=== PATIENT | male | born 1960 | race African-American/Black ===

== ENCOUNTER 2016-10-12 15:08 | Emergency (ER) | payer OTHER ==
[2016-10-12 16:49] VITALS: BP 156/84; PULSE 66; RESP 16; TEMP 97.3; O2SAT 99
[2016-10-12] MEDS ORDERED: CEFTRIAXONE 1 GM PDS IM ONE (16:53)
[2016-10-12] MEDS ORDERED: KETOROLAC TROMETHAMINE 30 MG/ML SOL IM ONE (16:54)
[2016-10-12] MEDS ORDERED: LIDOCAINE HCL 1% MPF SOL ONE (17:01)
[2016-10-12] MEDS ORDERED: KETOROLAC TROMETHAMINE 30 MG/ML SOL ONE (17:05)
[2016-10-12] MEDS ORDERED: CEFTRIAXONE 1 GM PDS ONE (17:07)
== END 2016-10-12 17:33 | disposition home or self-care (01) | DRG 156 ==
LOC: ED 15:08
DX: H60.502 Unspecified acute noninfective otitis externa, left ear (principal); K11.21 Acute sialoadenitis
CPT/HCPCS: 96372; 99283; 99284; J0696; J1885; J2001

== ENCOUNTER 2016-12-10 11:23 | Emergency (ER) | payer OTHER ==
[2016-12-10 12:00] VITALS: BP 146/71; PULSE 72; RESP 20; TEMP 98.1; O2SAT 100
[2016-12-10 12:40] LABS: BASOPHILS % (AUTO) 1 % (0-3); EOSINOPHILS % (AUTO) 1 % (0-9); HEMATOCRIT 39 % (39-53); MEAN CORPUSCULAR HGB CONC 34.2 gm/dl (32.0-36.0); MEAN CORPUSCULAR VOLUME 93 fL (80-100); MONOCYTES % (AUTO) 8.5 % (0-12); NEUTROPHILS % (AUTO) 54.5 % (37-80)
[2016-12-10 12:58] LABS: CALCIUM 8.4 mg/dl (8.5-10.1); POTASSIUM 4.1 mMol/L (3.5-5.1)
== END 2016-12-10 14:30 | disposition home or self-care (01) | DRG 156 ==
LOC: ED 11:23
DX: K11.21 Acute sialoadenitis (principal); L30.9 Dermatitis, unspecified; R79.82 Elevated C-reactive protein (CRP)
CPT/HCPCS: 36415; 80053; 85025; 99282

== ENCOUNTER 2016-12-23 09:25 | Day surgery (SDC) | payer OTHER ==
[~2016-12-23 09:25] MED LIST: LIDOCAINE HCL 1% MPF SOL ONE; PROPOFOL 500 MG/50 ML EMU IV ONE
[2016-12-23 10:18] VITALS: TEMP 96.9
[2016-12-23 10:41] VITALS: RESP 18
[2016-12-23 10:53] VITALS: BP 122/77; PULSE 69; O2SAT 97
== END 2016-12-23 10:57 | disposition home or self-care (01) | DRG 433 ==
LOC: SURG 09:25
PROVIDERS: ATTEND Internal Medicine Gastroenterology
DX: K74.60 Unspecified cirrhosis of liver (principal); I85.00 Esophageal varices without bleeding; K76.6 Portal hypertension; E11.9 Type 2 diabetes mellitus without complications; Z79.4 Long term (current) use of insulin; K44.9 Diaphragmatic hernia without obstruction or gangrene; K31.89 Other diseases of stomach and duodenum
CPT/HCPCS: 82962; J2001; J2704

== ENCOUNTER 2017-12-19 06:35 | Emergency (ER) | payer OTHER ==
[2017-12-19 06:59] VITALS: RESP 18; TEMP 98.2
[2017-12-19] MEDS ORDERED: LIDOCAINE HCL 2% (VISCOUS) 20 ML SOL MT ONE (07:15)
[2017-12-19] MEDS ORDERED: LIDOCAINE HCL 2% (VISCOUS) 20 ML SOL ONE (07:20)
[2017-12-19 08:53] VITALS: BP 146/71; PULSE 85; O2SAT 100
== END 2017-12-19 09:11 | disposition home or self-care (01) | DRG 156 ==
LOC: ED 06:35
DX: H60.92 Unspecified otitis externa, left ear (principal); H61.23 Impacted cerumen, bilateral
CPT/HCPCS: 99282; A9270-GY

== ENCOUNTER 2018-02-04 09:24 | Emergency (ER) | payer OTHER ==
[2018-02-04 09:41] VITALS: TEMP 96.5
[2018-02-04 10:13] LABS: BASOPHILS % (AUTO) 1 % (0-3); EOSINOPHILS % (AUTO) 2 % (0-9); HEMATOCRIT 41 % (39-53); HEMOGLOBIN 13.3 gm/dl (13.5-17.7); LYMPHOCYTES % (AUTO) 42.9 % (10-50); MEAN CORPUSCULAR HEMOGLOBIN 29.4 pg (27.0-32.0); MEAN CORPUSCULAR HGB CONC 32.6 gm/dl (32.0-36.0); MEAN CORPUSCULAR VOLUME 90 fL (80-100); MONOCYTES % (AUTO) 12.3 % (0-12); NEUTROPHILS % (AUTO) 42.6 % (37-80)
[2018-02-04 10:22] LABS: INR 1.08 (0.86-1.12)
[2018-02-04 10:28] LABS: BILIRUBIN,TOTAL 0.6 mg/dl (0.2-1.0); CARBON DIOXIDE 24.1 mEq/L (21-32); CREATININE 1.13 mg/dl (0.80-1.30); POTASSIUM 3.6 mMol/L (3.5-5.1); TOTAL PROTEIN 8.3 gm/dl (6.4-8.2)
[2018-02-04] MEDS ORDERED: SODIUM CHLORIDE 0.9% 500 ML 500 ML IV ONE (11:00)
[2018-02-04 15:31] VITALS: RESP 16
[2018-02-04 15:32] VITALS: BP 125/80; PULSE 68; O2SAT 90
== END 2018-02-04 12:45 | disposition home or self-care (01) | DRG 392 ==
LOC: ED 09:24
DX: R19.7 Diarrhea, unspecified (principal)
CPT/HCPCS: 36415; 80053; 82272; 82962; 85025; 85610; 96365; 99282; 99284

== ENCOUNTER 2018-05-13 05:15 | Emergency (ER) | payer OTHER ==
[2018-05-13 05:22] VITALS: RESP 20; O2SAT 99
[2018-05-13 05:33] VITALS: PULSE 93
[2018-05-13] MEDS ORDERED: ACETAMINOPHEN 500 MG 500 MG TAB PO ONE (05:48)
[2018-05-13] MEDS ORDERED: ACETAMINOPHEN 500 MG 500 MG TAB ONE (05:55)
[2018-05-13 06:15] VITALS: BP 148/82; TEMP 100.6
[2018-05-13 06:23] LABS: INFLUENZA A NEGATIVE (NEGATIVE); INFLUENZA B NEGATIVE (NEGATIVE)
== END 2018-05-13 06:34 | disposition home or self-care (01) | DRG 866 ==
LOC: ED 05:15
DX: B34.9 Viral infection, unspecified (principal); J02.9 Acute pharyngitis, unspecified; R50.9 Fever, unspecified; R42 Dizziness and giddiness
CPT/HCPCS: 82962; 87430; 87804; 99282; 99283